=== PATIENT | female | born 1960 | race Caucasian/White ===

== ENCOUNTER 2021-03-20 17:14 | Emergency (ER) | payer OTHER ==
[2021-03-20] MEDS ORDERED: oxyCODONE 5 MG TABLET PO STA (18:39)
--- NOTE | 2021-03-20 18:39 | ED Physician Documentation ---
History of Present Illness - Stated complaint Stated Complaint: GLF - Chief complaint Chief Complaint: Trauma Hd/Nk - History obtained from History obtained from: Patient - History of Present Illness Timing: Today Pain level max: 8 Pain level now: 8 - Additonal information Additional information: Patient is a 60-year-old female who tripped and fell today landing on her face and right side of her head. Has pain to the right ribs, anterior upper right teeth and mild headache. No visual changes. No neck or back pain. Worse with movement, better with rest. She states that her right upper incisor was pushed backwards after the fall, she pushed it back forwards. No bleeding. No loss of consciousness. Review of Systems Ten Systems: 10 systems reviewed and negative Constitutional: denies: Fever, Chills Eyes: denies: Photophobia Nose: denies: Rhinorrhea / runny nose, Congestion Cardiac: denies: Chest pain / pressure, Palpitations Respiratory: denies: Dyspnea, Cough GI: denies: Abdominal Pain, Vomiting, Diarrhea Skin: denies: Rash Musculoskeletal: denies: Neck pain, Back pain Neurologic: denies: Headache PD PAST MEDICAL HISTORY - Past Medical History Past Medical History: Yes Cardiovascular: Hypertension Respiratory: None Neuro: None Endocrine/Autoimmune: None GI: None FOOD AND BEVERAGE ASSOCIATE: None : None HEENT: None Psych: None Musculoskeletal: None Derm: None - Past Surgical History Past Surgical History: Yes General: Gastric surgery Ortho: Knee replacement, Shoulder arthroplasty, Arthroscopic surgery - Present Medications Home Medications: Ambulatory Orders Medication Instructions Recorded Confirmed Atenolol [Tenormin] 50 mg PO DAILY 03/20/21 03/20/21 Atorvastatin [Lipitor] 20 mg ORAL DAILY 03/20/21 03/20/21 FLUoxetine [PROzac] 40 mg PO DAILY 03/20/21 03/20/21 Hydrochlorothiazide 25 mg PO DAILY 03/20/21 03/20/21 Losartan [Cozaar] 100 mg PO DAILY 03/20/21 03/20/21 Oxycodone HCl/Acetaminophen 1 - 2 each PO Q6H PRN #14 tablet 03/20/21 [Percocet 5-325 mg Tablet] - Allergies Allergies/Adverse Reactions: Allergies Allergy/AdvReac Type Severity Reaction Status Date / Time No Known Drug Allergies Allergy Verified 03/20/21 17:16 - Social History Does the pt smoke?: No Smoking Status: Former smoker Does the pt drink ETOH?: Yes Does the pt have substance abuse?: Yes Substance Use and Type: Marijuana - Immunizations Immunizations are current?: Yes PD ED PE NORMAL - Vitals Vital signs reviewed: Yes - General General: Alert and oriented X 3, No acute distress - HEENT HEENT: Atraumatic, PERRL, EOMI, Moist mucous membranes, Other (mild loosening of the R upper tooth, incisor. no other injuries. mild R forehead hematoma. 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 No acute intracranial process. ) R rib xray Radiology: Prelim report reviewed, EMP read contemporaneously, See rad report (IMPRESSION: Ill-defined appearance of possible lateral right 11th rib fracture. This could be artifactual, as it is not well seen on all images secondary to overlying soft tissue structures. Recommend correlation of point tenderness. ) PD MEDICAL DECISION MAKING - ED course Complexity details: reviewed results, re-evaluated patient, considered differential, d/w patient ED course: 60-year-old female with a ground-level fall tonight. Has a mild to subluxation that does not need any adjustment tonight. She will follow up with her dentist for this. Negative head CT. Does have a right 11th rib fracture. Will place on pain medication at home for this. No other acute injuries. Patient counseled regarding signs and symptoms for which I believe and urgent re- evaluation would be necessary. Patient with good understanding of and agreement to plan and is comfortable going home at this time This document was made in part using voice recognition software. While efforts are made to proofread this document, sound alike and grammatical errors may occur. Departure - Departure Disposition: 01 Home, Self Care Clinical Impression: Subluxation of tooth Rib fracture Qualifiers: Encounter type: initial encounter Rib fracture type: single rib Fracture type: closed Laterality: right Qualified Code(s): S22.31XA - Fracture of one rib, right side, initial encounter for closed fracture Closed head injury Qualifiers: Encounter type: initial encounter Qualified Code(s): S09.90XA - Unspecified injury of head, initial encounter Condition: Good Instructions: ED Fx Rib, ED Head Injury Closed Follow-Up: Sy Montoya DO [Primary Care Provider] - Within 1 week Prescriptions: Oxycodone HCl/Acetaminophen [Percocet 5-325 mg Tablet] 1 - 2 each PO Q6H PRN #14 tablet PRN Reason: pain Comments: Please follow-up with your dentist in the next 2 days to have your teeth reevaluated and ensure they are healing. Return if you worsen. Your head CT does not show any acute abnormalities. You do appear to have a right 11th rib fracture, this should heal without difficulty. Do not drink alcohol or drive while on narcotic pain medicine. Note that many narcotic pain relievers also contain tylenol/acetaminophen. Please ensure that your total dose of acetaminophen from all sources does not exceed 3 grams (3000mg) per day. You may constipated on this medication, take a stool softener such as "Colace" twice a day while you are on it. Also recommend a mnkt-tby-zimmjib laxative such as senna or MiraLAX any day that you do not have a bowel movement. If you received narcotic pain medication in the emergency department, do not drive or operate machinery for the next 24 hours. Discharge Date/Time: 03/20/21 19:35
--- NOTE | 2021-03-20 19:12 | CT Report ---
PROCEDURE: HEAD WO INDICATIONS: fall, head injury,unknown LOC TECHNIQUE: Noncontrast 4.5 mm thick angled axial sections acquired from the foramen magnum to the vertex. For r adiation dose reduction, the following was used: automated exposure control, adjustment of mA and/or kV according to patient size. COMPARISON: None. FINDINGS: Image quality: Excellent. CSF spaces: Basal cisterns are patent. No extra-axial fluid collections. Ventricles are normal in size and shape. Brain: No midline shift. No intracranial masses or hemorrhage. Michele-white matter interface is norm al. Skull and face: Calvarium and visualized facial bones are intact, without suspicious lesions. Sinuses: Visualized sinuses and mastoids are clear. IMPRESSION: 1. No acute intracranial process. Reviewed by: Gladys Caba MD on 03/20/2021 7:10 PM PDT Approved by: Gladys Caba MD on 03/20/2021 7:10 PM PDT Station ID: [id number]
--- NOTE | 2021-03-20 19:21 | XRAY Report ---
PROCEDURE: Ribs w/PA Chest RT INDICATIONS: fall R rib pain TECHNIQUE: 3 views of the right ribs were acquired, along with a single view chest. COMPARISON: None FINDINGS: Surgical changes and devices: None. Bones and chest wall: There is an ill-defined appearance of suspected nondisplaced rib fracture, not well seen on all views of the lateral right 11th rib. No suspicious bony lesions. Overlying soft tis sues appear unremarkable. Lungs and pleura: No pleural effusions or pneumothorax. Lungs appear clear. Mediastinum: Mediastinal contours appear normal. Heart size is normal. IMPRESSION: Ill-defined appearance of possible lateral right 11th rib fracture. This could be artifactual, as it is not well seen on all images secondary to overlying soft tissue structures. Recommend correlation o f point tenderness. Reviewed by: Gladys Caba MD on 03/20/2021 7:20 PM PDT Approved by: Gladys Caba MD on 03/20/2021 7:20 PM PDT Station ID: [id number]
[2021-03-20 19:36] VITALS: BP 150/90
== END 2021-03-20 19:35 | disposition home or self-care (01) ==
LOC: ED 17:14
DX: S03.2XXA Dislocation of tooth, initial encounter (principal); S22.31XA Fracture of one rib, right side, initial encounter for closed fracture; S09.90XA Unspecified injury of head, initial encounter; W01.0XXA Fall on same level from slipping, tripping and stumbling without subsequent striking against object, initial encounter; Z87.891 Personal history of nicotine dependence
CPT/HCPCS: 70450; 71101; 99284; A9270

== ENCOUNTER 2022-01-12 08:00 | Outpatient (CLI) | payer OTHER ==
[2022-01-12 17:54] LABS: BILIRUBIN,URINE NEGATIVE (NEGATIVE); GLUCOSE, URINE (UA) NEGATIVE (NEGATIVE); KETONES,URINE (UA) NEGATIVE (NEGATIVE); LEUKOCYTE ESTERASE, URINE TRACE (NEGATIVE); NITRITE,URINE NEGATIVE (NEGATIVE); OCCULT BLOOD,URINE LARGE (NEGATIVE); PROTEIN,URINE 30 mg/dL (NEGATIVE); UROBILINOGEN,URINE 1 (NORMAL) E.U./dL (NORMAL)
[2022-01-12 17:58] LABS: CLARITY,URINE HAZY (CLEAR)
[2022-01-12 18:33] LABS: AMORPHOUS SEDIMENT,UR Rare /LPF; BACTERIA,URINE Rare /HPF (None Seen); SQUAMOUS EPITHELIAL CELL,UR NONE SEEN (<= Few)
== END 2022-01-12 23:59 | disposition home or self-care (01) ==
LOC: LAB.S 08:00
PROVIDERS: ATTEND Physician Assistant Medical
DX: R31.9 Hematuria, unspecified (principal)
CPT/HCPCS: 81001; 87086